=== PATIENT | male | born 1945 | race Caucasian/White ===

== ENCOUNTER 2019-05-30 08:31 | Day surgery (SDC) | payer OTHER ==
[~2019-05-30] VITALS: Ht 175.3 cm; Wt 97.2 kg
[~2019-05-30 08:31] MED LIST: ATEN25 PO; BIOTIN PO; NAPR220 PO; THYR60 PO
--- NOTE | 2019-05-30 09:00 | NUR ---
PT ADMITTED TO [facility]. AGREES WITH PLANNED SURGERY. LUNG SOUNDS CLEAR.
--- NOTE | 2019-05-30 09:00 | NUR ---
NOZIN TO NARES BILATERALLY.
--- NOTE | 2019-05-30 15:51 | NUR ---
PATIENT HAD 100 ML EMESIS. PHENERGAN 12.5 MG ADMIN. DESIRED TO WORK WITH PT, UP IN CHAIR. NOW STATES NAUSEA IS RESOLVED. DENIES NEED FOR PAIN MED. TALKING ON PHONE. CONT TO MONITOR.
--- NOTE | 2019-05-30 19:00 | NUR ---
SHIFT SUMMARY PATIENT STATES PAIN CONTROLLED. UP W/PT. CIRC CHECKS TO RLE WNL. DRESSING D&I. NAUSEA RESOLVED PER PATIENT; TOOK DINNER W/O C/O. NO VOID YET; PATIENT DENIES URGE TO VOID. NOC RN INFORMED. UP IN CHAIR, CALL LIGHT IN REACH.
[2019-05-31 05:55] LABS: Anion Gap 7 mmol/L (6-16); Blood Urea Nitrogen 18 mg/dL (8-24); Bun/Creatinine Ratio 19.9 (12.0-20.0); CO2, Blood 24 mmol/L (21-32); Calcium, Blood 8.2 mg/dL (8.5-10.1); Chloride, Blood 104 mmol/L (98-108); Glomerular Filtration Rate >60 (60-); Glucose, Blood 128 mg/dL (70-99); Potassium, Blood 5.8 mmol/L (3.5-5.5); Sodium, Blood 135 mmol/L (136-145)
[2019-05-31 06:03] LABS: BASOPHILS ABSOLUTE AUTO 0.02 K/mm3 (0.00-0.23); BASOPHILS PERCENT AUTO 0 % (0-2); EOSINOPHILS ABSOLUTE AUTO 0.01 K/mm3 (0.00-0.68); EOSINOPHILS PERCENT AUTO 0 % (0-6); Hematocrit 36.5 % (37.0-53.0); IMMATURE GRAN ABSOLUTE AUTO 0.07 K/mm3 (0.00-0.10); IMMATURE GRAN PERCENT AUTO 0 % (0-1); LYMPHOCYTES ABSOLUTE AUTO 1.42 K/mm3 (0.84-5.20); LYMPHOCYTES PERCENT AUTO 9 % (21-46); MONOCYTES ABSOLUTE AUTO 1.03 K/mm3 (0.16-1.47); MONOCYTES PERCENT AUTO 6 % (4-13); Mean Corpuscular HGB 29.7 pg (26.0-34.0); Mean Corpuscular HGB Conc 32.9 g/dL (31.5-36.5); Mean Corpuscular Volume 90 fL (80-100); Mean Platelet Volume 9.7 fL (9.1-12.4); NEUTROPHILS ABSOLUTE AUTO 13.61 K/mm3 (1.96-9.15); NEUTROPHILS PERCENT AUTO 84 % (41-73); Platelet Count 153 K/mm3 (150-400); RDW Coefficient Variation 12.4 % (11.7-14.2); RDW Standard Deviation 41.2 fL (35.1-46.3); Red Blood Cell Count 4.04 M/mm3 (4.30-5.90); White Blood Cell Count 16.16 K/mm3 (4.00-11.30)
--- NOTE | 2019-05-31 07:10 | NUR ---
SUMMARY PT UP IN HALLS TONIGHT WITH ASSIST AND IN ROOM. VOIDING. DENIES OTHER THAN TYLENOL AND TORADOL FOR PAIN. PT ABLE TO REPOSITION SELF IN BED. NO C/O NAUSEA.VERB UNHAPPY ABOUT BEING WOKE FOR VS LABS CHECKS ETC.ALTHOUGH WE COMBINED VS AND MEDS MUCH POSSIBLE AND DISCUSSED THIS WITH PT. SLEEPING AT THIS TIME. DECLINES OFFER OF SLEEP MASK OR EAR PLUGS.
--- NOTE | 2019-05-31 14:55 | NUR ---
CARE ASSUMED OF PT AT THIS TIME. WILL MONITOR UNTIL DISCHARGE. PT ALERT, ORIENTED AND REPORTS PAIN IS MANAGED.
--- NOTE | 2019-05-31 15:02 | NUR ---
PT IS UP TO THE CHAIR AT THIS TIME. PAIN MANAGED WITH PO PAIN MEDICATION & SCHEDULED TYLENOL. PT IS TOLERATING PO INTAKE, VOIDING WNL. AND AMBULATING WITH 1 ASSIST WITH NO PROBLEMS. VSS, RESP UNLABORED, PT WAITING ON HIS DAUGHTER TO PICK HIM TO GO HOME. REPORT HAS BEEN GIVEN TO KEERTHI PINA
[2019-05-31] MEDS ORDERED: MERIBIN5 MG PO (15:07)
[2019-05-31] MEDS ORDERED: Aspir 8181 MG PO (15:09)
[2019-05-31] MEDS ORDERED: Percocet 5-3251 EACH PO (15:12)
--- NOTE | 2019-05-31 16:17 | NUR ---
DISCHARGE PT PROVIDED WITH WRITTEN AND VERBAL DISCHARGE INSTRUCTIONS. PT REPORTED UNDERSTANDING INSTRUCTIONS AFTER QUESTIONS WERE ANSWERED. CLEAN DRESSINGS PROVIDED. PT REPORTED PAIN MANAGED AT TIME OF DISCHARGED, HE ALSO REPORTED FEELING COMFORTABLE WITH DISCHARGE PLAN. PT ASSISTED OUT TO VEHICLE IN W/C BY THIS RN. FAMILY PRESENT TO TAKE PT HOME.
== END 2019-05-31 16:00 | disposition home or self-care (01) ==
LOC: ORSCMMR 08:31 → ORD 09:45 → ORSCMMR 09:45 → ORD 10:00 → SURS 13:23 → ORSCMMR 05-31 16:00
PROVIDERS: Orthopaedic Surgery
PROC: 0SRC0JA Replacement of Right Knee Joint with Synthetic Substitute, Uncemented, Open Approach (ICD-10-PCS; principal; 2019-05-30 09:45)
DX: M17.11 Unilateral primary osteoarthritis, right knee (principal); I10 Essential (primary) hypertension; E03.9 Hypothyroidism, unspecified; K21.9 Gastro-esophageal reflux disease without esophagitis; Z79.899 Other long term (current) drug therapy
CPT/HCPCS: 36415; 73560-RT; 80048; 85025; 86850; 86900; 86901; 88300; 97110; 97116; 97161; 97530; C1776; J0171; J0690; J0735; J1100; J1170; J1885; J2250; J2370; J2405; J2550; J2704; J2710; J2795; J3010; J7120; Q0163

== ENCOUNTER 2021-10-26 06:01 | Day surgery (SDC) | payer OTHER ==
[~2021-10-26] VITALS: Ht 175.3 cm; Wt 95.5 kg
[~2021-10-26 06:01] MED LIST changes: +Aspir 8181 MG PO; +LEVSOD75 PO; +LOSA25 PO; +MERIBIN5 MG PO; +MULVITA PO; +OMEP20ER PO; +Percocet 5-3251 EACH PO
--- NOTE | 2021-10-26 07:32 | NUR ---
History, Chart, Medications and Allergies reviewed before start of procedure. Lungs clear T/O to Auscultation. Patient confirms NPO status and agrees with scheduled surgery. Pre-Op teaching done. Pt verbalizes understanding. Patient reports completing Chlorhexadine shower X1 prior to admission to hospital.
--- NOTE | 2021-10-26 19:15 | NUR ---
SHIFT SUMMARY POD0 LTKA, A/O X4, VSS, TOLERATING PO, UP TO CHAIR T/O MOST OF THE SHIFT, WORKED c PT AND DID WELL PER THEIR REPORT, NO VOIDS THIS SHIFT BUT BLADDER SCAN ONLY REVEALED 65 ML, ENCOURAGED INC PO INTAKE AND REPORTED THIS TO NOC RN. NO ACUTE EVENTS THIS SHIFT, CALL LIGHT IN REACH, REPORT GIVEN TO NOC RN.
--- NOTE | 2021-10-26 19:22 | NUR ---
POLAR PACK IN PLACE AT ALL TIMES THIS SHIFT OTHER THAN WHILE AMBULATING.
[2021-10-27 03:58] LABS: BASOPHILS ABSOLUTE AUTO 0.03 K/mm3 (0.00-0.23); BASOPHILS PERCENT AUTO 0 % (0-2); EOSINOPHILS ABSOLUTE AUTO 0.08 K/mm3 (0.00-0.68); EOSINOPHILS PERCENT AUTO 1 % (0-6); Hematocrit 35.1 % (37.0-53.0); Hemoglobin 11.4 g/dL (13.5-17.5); IMMATURE GRAN ABSOLUTE AUTO 0.06 K/mm3 (0.00-0.10); IMMATURE GRAN PERCENT AUTO 0 % (0-1); LYMPHOCYTES PERCENT AUTO 16 % (21-46); MONOCYTES ABSOLUTE AUTO 0.96 K/mm3 (0.16-1.47); MONOCYTES PERCENT AUTO 7 % (4-13); Mean Corpuscular HGB 29.1 pg (26.0-34.0); Mean Corpuscular HGB Conc 32.5 g/dL (31.5-36.5); Mean Corpuscular Volume 90 fL (80-100); Mean Platelet Volume 8.9 fL (9.1-12.4); NEUTROPHILS ABSOLUTE AUTO 11.07 K/mm3 (1.96-9.15); NEUTROPHILS PERCENT AUTO 76 % (41-73); Platelet Count 179 K/mm3 (150-400); RDW Coefficient Variation 12.4 % (11.7-14.2); RDW Standard Deviation 40.5 fL (35.1-46.3); Red Blood Cell Count 3.92 M/mm3 (4.30-5.90)
[2021-10-27 04:16] LABS: Anion Gap 6 mmol/L (6-16); Blood Urea Nitrogen 22 mg/dL (8-24); Bun/Creatinine Ratio 20.4 (12.0-20.0); CO2, Blood 26 mmol/L (21-32); Calcium, Blood 7.9 mg/dL (8.5-10.1); Chloride, Blood 102 mmol/L (98-108); Creatinine, Blood 1.08 mg/dL (0.60-1.20); Glomerular Filtration Rate >60 (60-); Glucose, Blood 129 mg/dL (70-99); Potassium, Blood 4.5 mmol/L (3.5-5.5); Sodium, Blood 134 mmol/L (136-145)
--- NOTE | 2021-10-27 05:10 | NUR ---
SUMMARY PT HAD NO NEW ISSUES NOTED. PT WAS UP IN CHAIR AND LEGS ELEVATED FOR MOST OF SHIFT. PT DID VOID DURING SHIFT. PT AMBULATED TO BATROOM VIA GB AND FWW, PT PAIN MANAGED WELL. PT DRESSING C/D/I AND POLAR WRAP IN PLACE. PT HAS GOOD SENSATION AND MOVEMENT TO LE. PT CURRENTLY SLEEPING IN NO DISTRESS. CALL LIGHT IN REACH.
[2021-10-27] MEDS ORDERED: Percocet 5-3251 EACH PO (08:46)
--- NOTE | 2021-10-27 11:52 | NUR ---
DISCHARGE PT PROVIDED WITH WRITTEN AND VERBAL DISCHARGE INSTRUCTIONS, HE REPORTED UNDERSTANDING. PT SENT HOME WITH CLENA DRESSINGS. PRESCRIPTION SENT WITH PT. PT CLEARED THERAPY, ABLE TO VOID, PAIN MANAGED AND TOLERATING PO PRIOR TO DISCHARGE. VSS PRIOR TO DISCHARGE. PT ESCORTED OUT IN WHEELCHAIR BY STUDENT NURSE AT APPROXIMATELY 1120.
== END 2021-10-27 11:25 | disposition home or self-care (01) ==
LOC: ORSCMMR 06:01 → ORD 07:30 → ORSCMMR 07:30 → SURS 10:41 → ORSCMMR 10-27 11:25
PROVIDERS: Orthopaedic Surgery
PROC: 0SRD0JA Replacement of Left Knee Joint with Synthetic Substitute, Uncemented, Open Approach (ICD-10-PCS; principal; 2021-10-26 07:30)
PROC: 8E0Y0CZ Robotic Assisted Procedure of Lower Extremity, Open Approach (ICD-10-PCS; principal; 2021-10-26 07:30)
DX: M17.11 Unilateral primary osteoarthritis, right knee (principal); I10 Essential (primary) hypertension; K21.9 Gastro-esophageal reflux disease without esophagitis; E03.9 Hypothyroidism, unspecified; Z79.899 Other long term (current) drug therapy; Z79.82 Long term (current) use of aspirin
CPT/HCPCS: 27447; S2900; 36415; 73560-LT; 80048; 85025; 97110; 97116; 97162; A9270; C1776; J0171; J0690; J0735; J1100; J1885; J2270; J2370; J2405; J2550; J2704; J2795; J3010; J7120

== ENCOUNTER 2025-04-07 11:19 | Emergency (ER) | payer OTHER ==
[~2025-04-07] VITALS: Ht 177.8 cm; Wt 92.1 kg
[~2025-04-07 11:19] MED LIST changes: +ADULT GLYCERIN1 EACH PR; +CITRATE OF MAG296 M4 PO; +DOC250 PO
[2025-04-07] MEDS ORDERED: NS 1,000 ML IV SCH (11:35)
[2025-04-07] MEDS ORDERED: DiphenhydrAMINE HCl 50 MG/ML 1ML Vial IV ONE (11:35)
[2025-04-07] MEDS ORDERED: Ondansetron HCl 2 MG / ML 2ML Vial IV ONE (12:35)
[2025-04-07 15:00] VITALS: BP 133/88
== END 2025-04-07 15:19 | disposition home or self-care (01) ==
LOC: ER 11:19
DX: T63.451A Toxic effect of venom of hornets, accidental (unintentional), initial encounter (principal); L50.9 Urticaria, unspecified; R11.10 Vomiting, unspecified; R42 Dizziness and giddiness; Z91.030 Bee allergy status; Z79.899 Other long term (current) drug therapy
CPT/HCPCS: 93005; 93010; 96374; 96375; 99283-25; J1200; J2405; J2919; J7030